=== PATIENT | male | born 2000 | race African-American/Black ===

== ENCOUNTER 2024-03-15 12:14 | Inpatient (IN) | payer OTHER, MEDICAID, SELFPAY ==
--- NOTE | 2024-03-15 12:25 | XR_ITS ---
Examination: CT brain head without contrast. 2-D sagittal coronal reconstructions Date and time of exam:March 15, 2024 at 1235 hours INDICATIONS: Seizures today, patient fell with injury to the head CTDI: vol (mGy):47.7 DLP: (mGycm):936 Technique: Multiple CT axial sections of the brain have been obtained, 5 mm slice thickness. Contrast has not been administered. 2-D sagittal, coronal reconstructions have been obtained Low dose protocols were performed. One or more of the following dose reduction techniques were used; automated exposure control, adjustment of the mA and/or KV according to patient size, use of iterative reconstruction technique. Findings: No significant ventricular enlargement. 5 mm round foreign body in the posterior scalp axial image 24 Intra-axial or extra-axial hemorrhage density is not seen. No mass effect or midline shift Basal cisterns are not remarkable. Fourth ventricle is midline. Cranial vault intact. Impression: Negative for acute hemorrhage, mass effect or midline shift Advise clinical correlation follow-up accordingly
--- NOTE | 2024-03-15 12:26 | EDNOTE_ITS ---
<Statement entered by Lenore Jose MD - 03/15/24 16:17> As co-signing physician, I was present and available for consult prn. I concur with the plan and care as documented by the midlevel provider. ED Seizures RME/HPI General Chief Complaint: Seizure Stated Complaint: SEIZURES Time Seen by Provider: 03/15/24 12:21 Arrival date/time: 03/15/24 12:14 RME / HPI RME / HPI Narrative: 24-year-old male patient with no significant past medical history, occasional beer drinker, was brought in by EMS for evaluation regarding witnessed tonic- clonic seizure at least twice few minutes prior to ER visit. Lasting for several minutes. When the EMS arrived patient was noted to be having postictal confusion. On my initial evaluation, patient was noted to be alert and oriented x 4 and denies any complaints. Patient denies any history of seizure in the past. Related Data Previous Rx's ?Medication ?Instructions ?Recorded ibuprofen 600 mg tablet 600 mg PO Q8HR PRN PAIN #30 tabs 08/10/15 Allergies Allergy/AdvReac Type Severity Reaction Status Date / Time NKA* Allergy Uncoded 06/18/13 20:20 Review of Systems Review of Systems Narrative Review of Systems: Review of system reviewed and within normal limits except mentioned in HPI ED Exam Narrative Physical exam: VITAL SIGNS: Reviewed. GENERAL APPEARANCE: Alert and interactive, follows commands, no acute distress, HEAD AND FACE: Non-traumatic. ENT: PERRL, pink conjunctivitis, eyelid no trauma, Mucous membrane moist. NECK: Supple, nontender, no nuchal rigidity. CHEST: No tenderness, no crepitus, no paradoxical movement, no retractions. LUNGS: Clear, well ventilated, symmetric, no rales, no wheezing, no ronchi, no stridor, good breath sounds bilaterally. HEART: Regular rate, regular rhythm, no murmur, no gallops. ABDOMEN: Soft, positive bowel sounds, nondistended, no guarding, nontender, no rebound, no masses, RECTAL: Deferred. GENITAL: Deferred. NEUROLOGICAL: Gross motor function intact sensory function intact, Appropriate for age. MUSCULOSKELETAL: low back nontender, full range of motion. EXTREMITIES: Nontender, full range of motion. SKIN: Color pink, dry, no rash, no lacerations, no abrasions, no contusions. LYMPHATICS: Deferred. Course Quality Measures none Orders Category Date Time Status COVID-19 Screening Questionnaire NOW Care 03/15/24 14:30 Active Decision to Admit X1 Care 03/15/24 14:30 Active Consult to Neurology / Tele-Neurology Stat Cons 03/15/24 14:[address] head/brain wo con Stat Exams 03/15/24 12:25 Completed XR chest 1V Stat Exams 03/15/24 14:33 Ordered CBC Stat Lab 03/15/24 12:45 Completed Comprehensive Metabolic Panel Stat Lab 03/15/24 12:45 Completed Drug Screen,Urine Stat Lab 03/15/24 13:07 Completed Lactate (Lactic Acid) Stat Lab 03/15/24 12:45 Results Prothrombin Time with INR Stat Lab 03/15/24 12:45 Completed UA, C/S IF [Urinalysis, C/S if Indicated] Stat Lab 03/15/24 13:07 Completed LORazepam [Ativan Inj] Med 03/15/24 14:02 Discontinued 2 mg .ROUTE .STK-MED ONE LORazepam [Ativan Inj] Med 03/15/24 14:07 Discontinued 2 mg IVP X1 ONE Sodium Chloride 0.9% 1000 ml [Ns] 1,000 ml Med 03/15/24 14:16 Active IV 999 mls/hr levETIRAcetam INJ [Keppra Inj] Med 03/15/24 14:09 Discontinued 1,000 mg IVP X1 ONE Vital Signs Vital signs: Vital Signs Temperature 98.2 F 03/15/24 12:32 Pulse Rate 70 03/15/24 12:32 Respiratory Rate 17 03/15/24 12:32 Blood Pressure 142/55 H 03/15/24 12:32 Pulse Oximetry (%) 99 03/15/24 12:32 Oxygen Delivery Method Room Air 03/15/24 12:32 Seizure MDM Narrative MDM Narrative:: 24-year-old male patient with no significant past medical history, occasional beer drinker, was brought in by EMS for evaluation regarding witnessed tonic- clonic seizure at least twice few minutes prior to ER visit. Lasting for several minutes. When the EMS arrived patient was noted to be having postictal confusion. On my initial evaluation, patient was noted to be alert and oriented x 4 and denies any complaints. Patient denies any history of seizure in the past. While in the emergency room, patient developed witnessed tonic-clonic seizure that lasted for several minutes. Patient was noted to be having postictal confusion after the seizure. Patient received Ativan IV, Keppra IV. Patient's workup today including CT scan of the head all came back unremarkable except for positive cocaine and marijuana. Plan of care discussed with the family and the need to admit the patient for further management. Spoke with Dr Patel, neurologist, and told me to admit the patient under hospitalist for further management. Patient stable for Admission. Patient data External records reviewed:: None Clinical information provided by:: patient and family Social determinants that could affect healthcare access:: none Patient has the following chronic illnesses:: Marijuana and cocaine abuse How is presenting disease/condition affected by chronic disease/condition?: exacerbated by Evaluation data The following diagnostics were reviewed and interpreted by me:: lab results and radiology exam(s) Lab and/or radiology exams considered but not ordered:: None Interpretation Summary: CT scan of the head came back unremarkable laboratory couple came back u nremarkable except positive for marijuana. And cocaine Medications / Prescriptions Medications or Prescriptions considered but not ordered:: None Medication administrations:: Medication Administration History Sodium Chloride (Ns) 1,000 mls @ 999 mls/hr IV .Q1H1M ONE Stop: 03/15/24 15:16 Last Admin: 03/15/24 14:23 Dose: 999 mls/hr Documented By: Discontinued Medications Levetiracetam (Levetiracetam Inj 100 Mg/Ml Vial 5ml) 1,000 mg IVP X1 ONE Stop: 03/15/24 14:10 Last Admin: 03/15/24 14:10 Dose: 1,000 mg Documented By: Lorazepam (Lorazepam 2 Mg/Ml Vial) 2 mg IVP X1 ONE Stop: 03/15/24 14:08 Last Admin: 03/15/24 14:07 Dose: 2 mg Documented By: Lorazepam (Lorazepam 2 Mg/Ml Vial) Confirm Administered Dose 2 mg .ROUTE .STK- MED ONE Stop: 03/15/24 14:03 Last Admin: 03/15/24 14:14 Dose: Not Given Documented By: Non-Admin Reason: Duplicate Medication on eMAR Lorazepam IV , Keppra IV, IV fluid hydration Consultations Consultation(s) initiated? (list below): Yes Consultation #1 (Physician, Specialty, Details): Dr Patel, neurologist, thank you Dr. Diagnosis Seizure Differential Diagnosis: intractable seizure disorder, new onset seizure, epileptic seizure and status epilepticus Most likely diagnosis given after review of the tests above:: New onset seizure, recurrent seizure Admission Indicated Admission indicated?: indicated Explain why admission is indicated or not indicated:: Further management Admission Request Was there a request for admission?: Yes Admission Attestation Admission request attestation: Discussed case with [Dr Garland] from Hospitalist service regarding admission. Discussed patients ED course, exam findings, labs, and radiology results. The Hospitalist [agrees] to accept the patient for admission. Disposition Plan Disposition Plan: Admit Discharge Plan Plan Patient Disposition: Admit Acute Care w/in Hospital Disposition Comment: stable Prescriptions/Referrals Prescriptions/Med Rec: No Action ibuprofen 600 MG tablet 600 mg PO Q8HR PRN (Reason: PAIN) Qty: 30 0RF Referrals: Maximo Perry PA-C [Primary Care Provider] - In 1 week Problem List Clinical Impression: New onset seizure Patient/Caregiver Discharge Instructions Print Language: Singaporean Stand Alone Forms: [employer] Award Info., Patient Portal Info Letter
[2024-03-15 12:32] VITALS: BP 142/55; PULSE 70; RESP 17; TEMP 36.8; O2SAT 99; BMI 25.1
[2024-03-15 12:50] LABS: Basophils # (Auto) 0.1 Thou/mm3 (0.0-0.2); Basophils % (Auto) 1 % (0-2.5); Eosinophils # (Auto) 0.2 Thou/mm3 (0.0-0.5); Eosinophils % (Auto) 2 % (0-10); Hematocrit 39.7 % (41.0-53.0); Hemoglobin 13.4 g/dL (13.5-16.0); Immature Granulocytes % (Auto) 0 % (0-0); Immature Granulocytes Auto 0.03 Thou/mm3 (0.00-0.00); Lymphocytes # (Auto) 1.6 Thou/mm3 (1.0-4.8); Lymphocytes % (Auto) 17 % (10-50); Mean Corpuscular HGB Conc 33.8 g/dl (31.0-37.0); Mean Corpuscular Hemoglobin 27.3 pg (25.0-35.0); Mean Corpuscular Volume 81 fL (80-100); Monocytes # (Auto) 0.6 Thou/mm3 (0.0-0.8); Monocytes % (Auto) 7 % (0-12); Neutrophils # (Auto) 6.8 Thou/mm3 (1.8-7.7); Neutrophils % (Auto) 73 % (37-80); Nucleated Red Blood Cell % 0 /100 WBC (0); Platelet Count 248 Thou/mm3 (140-440); RDW Standard Deviation 41.1 fL (35.1-43.9); White Blood Count 9.3 Thou/mm3 (3.8-10.6)
[2024-03-15 12:51] LABS: Lactate (Lactic Acid) 2.6 mMol/L (0.4-2.0)
[2024-03-15 13:09] LABS: INR 1.1 (0.9-1.3); Prothrombin Time 11.8 Seconds (9.0-12.2)
[2024-03-15 13:14] LABS: Collection Type, Urine Clean Catch; Squamous Epithelial Cell,Urine 0 /hpf (0-5)
[2024-03-15 13:18] LABS: Bilirubin,Urine Negative (Negative); Blood,Urine Negative (Negative); Clarity,Urine Clear (Clear/Hazy); Color,Urine Lt-Yellow (Lt Yel-Yel); Culture Indicated,Urine Not Indicated; Glucose, Urine Negative (Negative); Ketones,Urine 1+ (Negative); Leukocyte Esterase,Urine Negative (Negative); Nitrite,Urine Negative (Negative); PH,Urine 5.5 (5.0-7.0); Protein,Urine 1+ (Neg - Trace); RBC,Urine 2 /hpf (0-3); Specific Gravity,Urine 1.025 (1.001-1.035); Urobilinogen,Urine Negative mg/dL (0.0-1.0); WBC,Urine 1 /hpf (0-5)
[2024-03-15 13:22] LABS: Alanine Aminotransferase 20 U/L (10-49); Albumin/Globulin Ratio 1.9 (1.2-2.2); Alkaline Phosphatase 60 U/L (46-116); Anion Gap 9 (7-16); Aspartate Amino Transferase 33 U/L (0-34); BUN/Creatinine Ratio 14 Ratio (12-20); Bilirubin,Total 0.3 mg/dL (0.3-1.2); Blood Urea Nitrogen 14 mg/dL (9-23); Calcium 9.3 mg/dL (8.3-10.6); Calcium (Corrected) 9.3 mg/dL (8.5-10.1); Carbon Dioxide 22.7 mMol/L (20.0-31.0); Chloride 106 mMol/L (98-107); Estimated Creatinine Clearance 114.9 mL/min (>60); Globulin 2.6 gm/dL (2.3-3.5); Glucose 75 mg/dL (74-106); Osmolality,Calculated 275 (275-295); Potassium 4.2 mMol/L (3.4-5.1); Sodium 138 mMol/L (136-145); Total Protein 7.6 gm/dL (5.7-8.2); eGFR > 60 See Note
[2024-03-15 13:30] LABS: Amphetamine/Methamp Scrn,U Negative (Negative); Barbiturate Screen,Urine Negative (Negative); Benzodiazepines Screen,Urine Negative (Negative); Benzoylecgonine Screen, Ur Positive (Negative); Fentanyl Screen,Urine Negative (Negative); Opiate Screen,Urine Negative (Negative); THC Screen,Urine Positive (Negative)
[2024-03-15 14:07] VITALS: BP 180/72; PULSE 110; RESP 18; O2SAT 95
[2024-03-15] MEDS: LORazepam 2 MG/ML VIAL IVP (14:07)
--- NOTE | 2024-03-15 14:07 | PC.NURSE ---
RN AT BEDSIDE; PT ACTIVELY SEIZING EXHIBITING JERKING MOTIONS WITH ALL EXTREMITIES. PT'S EYES ROLLED BACK AND NOT RESPONDING TO VERBAL CUES. PT TURNED TO SIDE AND SUCTIONED APPROPRIATELY. Keily KELLEY AIRCRAFT PAINTER APPRENTICE AT BEDSIDE; VERBAL ORDERS WITH READBACK RECEIVED AT THIS TIME.
[2024-03-15] MEDS: levETIRAcetam INJ 100 MG/ML VIAL 5ML 1000 MG IVP (14:10)
--- NOTE | 2024-03-15 14:10 | PC.NURSE ---
PT PLACED ON OXY MASK @2L FOR SUPPORT AT THIS TIME
[2024-03-15 14:23] VITALS: BP 132/91; PULSE 71; RESP 18; TEMP 36.6; O2SAT 99
[2024-03-15] MEDS: SODIUM CHLORIDE 0.9% 1000 ML 1,000 ML 999 ML IV (14:23)
--- NOTE | 2024-03-15 14:45 | PC.NURSE ---
DR. Keily GARCIA AT BEDSIDE ASSESSING AND TALKING TO PT.
--- NOTE | 2024-03-15 15:22 | XR_ITS ---
Examination: AP chest single view Technique one AP portable upright chest single view Exam date and time: March 15, 2024 1529 hours INDICATIONS: Onset shortness of breath and choking today. FINDINGS: Normal heart size No aspiration pneumonia No pulmonary edema The osseous structures are intact IMPRESSION: No aspiration pneumonia
--- NOTE | 2024-03-15 15:35 | ESHP_ITS ---
Documentation for date of: 03/15/24 HPI History of Present Illness Chief complaint: new onset seizures History of present illness: 24-year-old male with no relevant past medical history was admitted to hospital on 03/15/2024 for to come to the ED brought in by EMS due to witnessed tonic- clonic seizures at least twice. During assessment patient was accompanied by his mother whom he stated could be present to discuss all medical information. Patient stated that he went to have lunch today when all of a sudden he passed out and does not remember what happened during that time and when he woke up he was confused. He stated that his friend drove him back to work and he had laid him on his side. Patient stated that he drinks around 12 cans of beers every other day depending on the day and that his last drink was Wednesday. He denies having any alcohol withdrawal symptoms like tremors, sweats, or anxiety. He also mentioned that he does marijuana, but he denied initially any other drugs. When told that his U tox was positive for cocaine he admitted to using cocaine around 2 days ago, but had not used anything else. Per patient he stated that he has never had any seizures in the past and when asked about any febrile seizures in his infancy his mother stated that he did not have this. During my assessment patient had a CIWA score around 3. Patient was upset that he would have to stay in the hospital, but agreed to stay in the hospital for further workup. ED course: Initially patient came in hypertensive and afebrile. Initial labs were relevant for mild anemia (Hgb 13.4), lactic acidosis (2.6), and U-Tox was positive for cocaine and marijuana. Alcohol levels were less than 10. Imaging included chest x-ray which was unremarkable and head CT was unremarkable. ED physicians gave loading dose of Keppra and 2 mg of Ativan. PMH: As above Social Hx: Patient admits to smoking marijuana, admits to using cocaine and marijuana, admits to drinking around 12 beers every other day. Surgical Hx: None Meds: None Review of Systems Review of Systems Narrative Review of Systems: Constitutional: Denies sweats, Denies weight loss/gain, Denies fever, Denies chills. HEENT: Denies hearing loss, Denies ear pain, Denies postnasal drip, Denies double vision, Denies blurry vision. Respiratory: Denies shortness of breath, Denies cough, Denies wheezing. Cardiovascular: Denies chest pain, Denies palpitations, Denies sudden loss of consciousness. GI: Denies blood in stool, Denies constipation, Denies abdominal pain, Denies difficulty swallowing, Denies nausea or vomit. : Denies urinary incontinence, Denies pain while urinating, Denies increased urinary frequency. MSK: Denies joint pain, Denies joint swelling, Denies numbness. Skin: Denies rash, Denies itching, Denies easy bruising. Neuro: Denies headaches, Denies dizziness, Admits seizures. Past Medical History Past Medical History Comments PMH COMMENT: PMH: As above Social Hx: Patient admits to smoking marijuana, admits to using cocaine and marijuana, admits to drinking around 12 beers every other day. Surgical Hx: None Meds: None Exam Vital Signs Temp Pulse Resp BP Pulse Ox O2 Del Method O2 Flow Rate 97.9 F 71 18 132/91 H 99 Oxy Mask 2 03/15/24 14:23 03/15/24 14:23 03/15/24 14:23 03/15/24 14:23 03/15/24 14:23 03/15/24 14:23 03/15/24 14:23 Narrative Exam General: A/O x3, no acute distress, anxious appearing Eyes: PERRL, EOMI. Anicteric, vision grossly intact. Ears: No ear pain, no ear discharge, Hearing grossly intact. Nose: No nasal discharge. Mouth/Throat: Moist mucous membranes, no redness, no lesions. Neck: Neck supple, non-tender, no cervical lymphadenopathy. Lungs: Clear PRESTON to auscultation and percussion, No accessory muscle use. Cardio: Normal S1/S2, regular rhythm, no murmurs, no JVD. Abdomen: Soft, non-tender, no palpable masses, peristalsis present, no guarding or rebound. Extremities: Symmetrical, no significant deformities, no peripheral edema , non-tender, peripheral pulses presents. Skin: No rashes, no lesions, warm to touch. Neuro: No focal neurological deficits. motor and sensory intact Psych: Anxious Results: Labs 03/15/24 12:45 03/15/24 12:45 Labs: Short CBC 03/15/24 Range/Units 12:45 WBC 9.3 (3.8-10.6) Thou/mm3 Hgb 13.4 L (13.5-16.0) g/dL Hct 39.7 L (41.0-53.0) % Plt Count 248 (140-440) Thou/mm3 BMP 03/15/24 12:45 Sodium 138 Potassium 4.2 Chloride 106 Carbon Dioxide 22.7 BUN 14 Creatinine 1.0 Glucose 75 Calcium 9.3 Liver Function 03/15/24 Range/Units 12:45 Total Bilirubin 0.3 (0.3-1.2) mg/dL AST 33 (0-34) U/L ALT 20 (10-49) U/L Alkaline Phosphatase 60 (46-116) U/L Albumin 5.0 (3.5-5.0) gm/dL Urine 03/15/24 Range/Units 13:07 Urine Color Lt-Yellow (Lt Yel-Yel) Urine Clarity Clear (Clear/Hazy) Urine pH 5.5 (5.0-7.0) Ur Specific [place] 1.025 (1.001-1.035) Urine Protein 1+ A (Neg - Trace) Urine Glucose (UA) Negative (Negative) Quality Measures Quality Measures none Medications Home Medications and Allergies Home Medications ?Medication ?Instructions ?Recorded ?Confirmed ?Type No Known Home Medications 03/15/24 03/15/24 History Allergies Allergy/AdvReac Type Severity Reaction Status Date / Time NKA* Allergy Uncoded 06/18/13 20:20 Visit Medications Folic Acid (Folic Acid 1 Mg Tablet) 1 mg PO BID JOHN Stop: 03/20/24 20:59 Lorazepam (Lorazepam 0.5 Mg Tablet) 0.5 mg PO Q4HR PRN PRN Reason: CIWA Score 2-6 Stop: 03/20/24 15:32 Lorazepam (Lorazepam 0.5 Mg Tablet) 1 mg PO Q4HR PRN PRN Reason: CIWA SCORE 7-11 Stop: 03/20/24 15:32 Lorazepam (Lorazepam 0.5 Mg Tablet) 2 mg PO Q4HR PRN PRN Reason: CIWA SCORE 12-15 Stop: 03/20/24 15:32 Lorazepam (Lorazepam 2 Mg/Ml Vial) 1 mg IV X1 PRN PRN Reason: Breakthrough Agitation Ondansetron HCl (Ondansetron Inj 2 Mg/Ml Inj 2 Ml) 4 mg IV Q6H PRN; Protocol PRN Reason: NAUSEA OR VOMITING Stop: 04/14/24 15:17 Thiamine HCl (Thiamine 100 Mg Tablet) 100 mg PO BID JOHN Stop: 03/20/24 20:59 Discontinued Medications Acetaminophen (Acetaminophen 325 Mg Tablet) 650 mg PO Q6H PRN PRN Reason: Fever >101.5 Stop: 04/14/24 15:17 Sodium Chloride (Ns) 1,000 mls @ 999 mls/hr IV .Q1H1M ONE Stop: 03/15/24 15:16 Last Admin: 03/15/24 14:23 Dose: 999 mls/hr Levetiracetam (Levetiracetam Inj 100 Mg/Ml Vial 5ml) 1,000 mg IVP X1 ONE Stop: 03/15/24 14:10 Last Admin: 03/15/24 14:10 Dose: 1,000 mg Lorazepam (Lorazepam 2 Mg/Ml Vial) 2 mg IVP X1 ONE Stop: 03/15/24 14:08 Last Admin: 03/15/24 14:07 Dose: 2 mg Assessment & Plan Plan 24-year-old male with no relevant past medical history was admitted to hospital on 03/15/2024 for new onset seizures. #Seizure ?Patient had a witnessed episode tonic-clonic seizures today while he was at lunch. DDx: seizures likely in the setting of alcohol withdrawal versus drug-induced given use of cocaine ? Head CT was unremarkable ? ED gave loading dose of Keppra and 2 mg of Ativan Plan: ? Will wait for neurology recommendations to start Keppra. ? MRI head and brain with and without contrast ordered ?EEG ordered ? Neurology consulted, appreciate recommendations ? Will continue to monitor #Polysubstance abuse #Alcohol abuse #Alcohol withdrawal #Cocaine use #Marijuana use ? Patient states that he drinks around 12 beers every other day with last drink being on Wednesday ?Patient's U tox was positive for marijuana and cocaine ?Patient's alcohol level was less than 10 ?CIWA 3 today Plan: ? CIWA protocol ordered ?accounting advisory services manager consulted ? Will continue to monitor Disposition: Patient admitted for seizures could be due to alcohol withdrawal vs drug use Diet: NPO GI prophylaxis: not indicated DVT prophylaxis: SCDs Code:Full Case disclosed with Attending Dr. Marvin and My senior Dr. Garland PGY2Jeremie Barrera PGY1 Senior Resident Attestation: The patient is a 24-year-old male with significant past medical history marijuana and cocaine abuse disorder was brought in by ambulance to ED with chief complaint of witnessed generalized tonic-clonic seizure for 2 episodes. The patient reported that he had used cocaine 2 days back and has been using marijuana. His procedure was likely in the setting of cocaine abuse, less likely alcohol withdrawal. Neurologist Dr. Patel was consulted who recommended Keppra 1 g and IV Ativan 2 mg. Vitals were stable, physical exam was significant for patient being somnolent. He was started on CIWA protocol. We ordered EEG, MRI head and brain with and without contrast along with seizure precautions. Pending further recommendations from neurologist Dr. Patel. I discussed with and supervised the investigator internal affairs physician involved in the care of this patient. I personally saw and examined the patient and discussed the assessment and plan with the entire medicine team, including my attending. I agree with the assessment and plan as documented above. Aung Garland MD PGY2 Internal Medicine
[2024-03-15 15:48] LABS: Reflex Lactate? Y
[2024-03-15 16:00] VITALS: PULSE 73; RESP 19; O2SAT 99
[2024-03-15 16:06] LABS: Lactic Acid, 3 HR 1.3 mMol/L (0.4-2.0)
[2024-03-15 16:21] VITALS: BP 118/49; PULSE 74; RESP 19; TEMP 36.9; O2SAT 96
[2024-03-15 16:30] LABS: Alcohol, Blood Medical < 10.0 mg/dL (0-10.0)
--- NOTE | 2024-03-15 16:33 | XR_ITS ---
Examination: MRI of brain without intravenous contrast. MRI brain with intravenous contrast. Date and time of exam:March 15, 2024 1825 hours INDICATIONS: Seizures lasting several minutes today Technique: Multiple axial and sagittal images of the brain to been obtained. Siemens high-resolution 1.52 Katerina short bore scanner utilized. Sagittal sections, T1 weighted images, TR 500, TE 14, are performed. Axial sections proton-density and T2-weighted images have been obtained. Inversion recovery axial images, TR 9260, TE 111, TR 2500. Diffusion weighted images, axial sections, TR 4800, TE 128, B value 1000. Axial sections, ADC map, TR 4800, TE 128. Axial and coronal images were also obtained post 15 cc gadolinium administered intravenously. Findings:: Enlargement of the sella turcica is not present. The optic chiasm and infundibular stalk are not remarkable. There is no localized enlargement of the medulla or felisha. Fourth ventricle and cerebellar tonsils appear normal in position. No subacute area of hemorrhage density is seen. Fourth ventricle is midline. Mass in the cerebellopontine angle region is not evident. 7th and 8th nerve complexes exhibit symmetry Globes are symmetrical Orbital musculature including medial lateral rectus muscles do not exhibit abnormality Increased white matter signal is not seen Effacement of the cortical sulcal markings is not identified. Mass effect upon the ventricular system is not identified. Diffusion-weighted images demonstrate no focus of restricted diffusion Contrast images demonstrate no abnormal enhancement Impression: The study is severely limited secondary to artifacts from a BB density in the posterior scalp No gross hemorrhage mass effect or midline shift No acute infarct No MR findings diagnostic for demyelinating disease
[2024-03-15 20:00] VITALS: BP 121/80; PULSE 83; PULSE 93; RESP 19; TEMP 36.8; O2SAT 100
[2024-03-15] MEDS: FOLIC ACID 1 MG TABLET PO (20:22)
[2024-03-15] MEDS: THIAMINE 100 MG TABLET PO (20:22)
--- NOTE | 2024-03-15 20:41 | PC.NURSE ---
No available avasure, pt was place near nurses station.
--- NOTE | 2024-03-15 23:50 | VVCONSULT_ITS ---
Telemedicine visit statement This visit was conducted with the use of interactive audio and video telecommunications system that permits real time communication between the patient and the provider. Patient's verbal consent for virtual visit was obtained on 03/15/24 at 2351. Meds Home Medications and Allergies Home Medications ?Medication ?Instructions ?Recorded ?Confirmed ?Type No Known Home Medications 03/15/24 03/15/24 History Allergies Allergy/AdvReac Type Severity Reaction Status Date / Time No Known Allergies Allergy Unverified 03/16/24 08:14 Virtual exam Vital Signs Temp Pulse Resp BP Pulse Ox O2 Del Method O2 Flow Rate 98.3 F 83 19 121/80 100 Room Air 2 03/15/24 20:00 03/15/24 20:00 03/15/24 20:00 03/15/24 20:00 03/15/24 20:00 03/15/24 20:00 03/15/24 16:00 Results Labs 03/16/24 04:55 03/16/24 04:55 Labs: Short CBC 03/15/24 Range/Units 12:45 WBC 9.3 (3.8-10.6) Thou/mm3 Hgb 13.4 L (13.5-16.0) g/dL Hct 39.7 L (41.0-53.0) % Plt Count 248 (140-440) Thou/mm3 BMP 03/15/24 12:45 Sodium 138 Potassium 4.2 Chloride 106 Carbon Dioxide 22.7 BUN 14 Creatinine 1.0 Glucose 75 Calcium 9.3 Liver Function 03/15/24 Range/Units 12:45 Total Bilirubin 0.3 (0.3-1.2) mg/dL AST 33 (0-34) U/L ALT 20 (10-49) U/L Alkaline Phosphatase 60 (46-116) U/L Albumin 5.0 (3.5-5.0) gm/dL Urine 03/15/24 Range/Units 13:07 Urine Color Lt-Yellow (Lt Yel-Yel) Urine Clarity Clear (Clear/Hazy) Urine pH 5.5 (5.0-7.0) Ur Specific [place] 1.025 (1.001-1.035) Urine Protein 1+ A (Neg - Trace) Urine Glucose (UA) Negative (Negative) Assessment & Plan Problem List (1) New onset seizure: Status: Acute Assessment and plan: DD: seizures/Alcohol withdarawal/drug induced vasculitis fu with brain MRI and EEG continue with Keppra 750 mg bid.
[2024-03-16] VITALS (11 sets, daily range): BP systolic 97–136; BP diastolic 48–90; PULSE 58–98; RESP 15–100; TEMP 36.5–36.8; O2SAT 97–100; BMI 25.1
[2024-03-16 06:10] LABS: Basophils # (Auto) 0.1 Thou/mm3 (0.0-0.2); Basophils % (Auto) 1 % (0-2.5); Eosinophils # (Auto) 0.3 Thou/mm3 (0.0-0.5); Eosinophils % (Auto) 2 % (0-10); Hematocrit 37.9 % (41.0-53.0); Hemoglobin 12.5 g/dL (13.5-16.0); Immature Granulocytes % (Auto) 0 % (0-0); Immature Granulocytes Auto 0.05 Thou/mm3 (0.00-0.00); Lymphocytes # (Auto) 2.1 Thou/mm3 (1.0-4.8); Lymphocytes % (Auto) 14 % (10-50); Mean Corpuscular Hemoglobin 27.7 pg (25.0-35.0); Mean Corpuscular Volume 84 fL (80-100); Monocytes % (Auto) 7 % (0-12); Neutrophils # (Auto) 11.2 Thou/mm3 (1.8-7.7); Neutrophils % (Auto) 76 % (37-80); Nucleated Red Blood Cell % 0 /100 WBC (0); Platelet Count 223 Thou/mm3 (140-440); RDW Standard Deviation 42.8 fL (35.1-43.9); Red Blood Count 4.51 Miln/mm3 (4.50-5.90); White Blood Count 14.7 Thou/mm3 (3.8-10.6)
[2024-03-16 06:45] LABS: Alanine Aminotransferase 18 U/L (10-49); Albumin, Serum 4.4 gm/dL (3.5-5.0); Albumin/Globulin Ratio 1.8 (1.2-2.2); Alkaline Phosphatase 52 U/L (46-116); Anion Gap 8 (7-16); Aspartate Amino Transferase 27 U/L (0-34); BUN/Creatinine Ratio 10 Ratio (12-20); Bilirubin,Total 1.2 mg/dL (0.3-1.2); Blood Urea Nitrogen 9 mg/dL (9-23); Calcium 9.2 mg/dL (8.3-10.6); Calcium (Corrected) 9.2 mg/dL (8.5-10.1); Cardiac Risk Estimate 2.4 RATIO (4.0-6.7); Chloride 106 mMol/L (98-107); Cholesterol 127 mg/dL (132-200); Creatinine (Component) 0.9 mg/dL (0.6-1.3); Estimated Creatinine Clearance 127.7 mL/min (>60); Globulin 2.4 gm/dL (2.3-3.5); Glucose 83 mg/dL (74-106); HDL Cholesterol 54 mg/dL (40-60); LDL Cholesterol,Calculated 51 mg/dL (0-130); Osmolality,Calculated 275 (275-295); Phosphorous 3.6 mg/dL (2.4-5.1); Potassium 3.8 mMol/L (3.4-5.1); Sodium 139 mMol/L (136-145); Thyroid Stimulating Hormone 0.37 uIU/mL (0.55-4.78); Total Protein 6.8 gm/dL (5.7-8.2); Triglycerides 110 mg/dL (30-150); eGFR > 60 See Note
[2024-03-16 08:16] LABS: Free T4 (Free Thyroxine) 1.34 ng/dL (0.89-1.76)
[2024-03-16] MEDS: FOLIC ACID 1 MG TABLET PO ×2 (08:19→20:57)
[2024-03-16] MEDS: THIAMINE 100 MG TABLET PO ×2 (08:19→20:57)
[2024-03-16] MEDS: levETIRAcetam 250 MG TABLET 750 MG PO ×2 (08:22→20:57)
--- NOTE | 2024-03-16 11:14 | ESPR_ITS ---
Documentation for date of: 03/16/24 Subjective Subjective Interval history: Patient seen at bedside this morning. No overnight events. Patient wants to leave AMA this morning, but after speaking with him and discussing the risk if he left AMA he agreed to stay for further workup. Patient's MRI was unremarkable. EEG was taken and is still pending official read and further recommendations from neurologist. Start patient on Keppra 750 twice daily. No other complaints at this time. Exam Vital Signs Temp Pulse Resp BP Pulse Ox O2 Del Method O2 Flow Rate 97.7 F 67 18 109/70 97 Room Air 2 03/16/24 08:00 03/16/24 08:00 03/16/24 08:00 03/16/24 08:00 03/16/24 08:00 03/16/24 08:00 03/15/24 16:00 Narrative Exam General: A/O x3, no acute distress Eyes: PERRL, EOMI. Anicteric, vision grossly intact. Ears: No ear pain, no ear discharge, Hearing grossly intact. Nose: No nasal discharge. Mouth/Throat: Moist mucous membranes, no redness, no lesions. Neck: Neck supple, non-tender, no cervical lymphadenopathy. Lungs: Clear [place]ON to auscultation and percussion, No accessory muscle use. Cardio: Normal S1/S2, regular rhythm, no murmurs, no JVD. Abdomen: Soft, non-tender, no palpable masses, peristalsis present, no guarding or rebound. Extremities: Symmetrical, no significant deformities, no peripheral edema , non-tender, peripheral pulses presents. Skin: No rashes, no lesions, warm to touch. Neuro: No focal neurological deficits. motor and sensory intact Objective Labs 03/16/24 04:55 03/16/24 04:55 Labs: Laboratory Results - last 24 hr 03/15/24 03/15/24 03/15/24 12:45 13:07 16:02 WBC 9.3 RBC 4.90 Hgb 13.4 L Hct 39.7 L MCV 81 MCH 27.3 MCHC 33.8 RDW Std Deviation 41.1 Plt Count 248 Neut % (Auto) 73 Lymph % (Auto) 17 [place] % (Auto) 7 Eos % (Auto) 2 Baso % (Auto) 1 Neut # (Auto) 6.8 Lymph # (Auto) 1.6 [place] # (Auto) 0.6 Eos # (Auto) 0.2 Baso # (Auto) 0.1 Immature Gran # (Auto) 0.03 H Absolute Nucleated RBC 0.00 Immature Gran % 0 Nucleated RBC % 0 PT 11.8 INR 1.1 Sodium 138 Potassium 4.2 Chloride 106 Carbon Dioxide 22.7 Anion Gap 9 BUN 14 Creatinine 1.0 Estim Creat Clear Calc 114.9 eGFR > 60 BUN/Creatinine Ratio 14 Glucose 75 Calculated Osmolality 275 Lactic Acid 2.6 H 1.3 Calcium 9.3 Corrected Calcium 9.3 Phosphorus Magnesium Total Bilirubin 0.3 AST 33 ALT 20 Alkaline Phosphatase 60 Total Protein 7.6 Albumin 5.0 Globulin 2.6 Albumin/Globulin Ratio 1.9 Triglycerides Cholesterol LDL Cholesterol, Calc HDL Cholesterol Cholesterol/HDL Ratio TSH Free T4 Ur Collection Type Clean Catch Urine Color Lt-Yellow Urine Clarity Clear Urine pH 5.5 Ur Specific [place] 1.025 Urine Protein 1+ A Urine Glucose (UA) Negative Urine Ketones 1+ A Urine Blood Negative Urine Nitrite Negative Urine Bilirubin Negative Urine Urobilinogen (Auto) Negative Ur Leukocyte Esterase Negative Urine RBC 2 Urine WBC 1 Ur Squamous Epith Cells 0 Urine Bacteria None Ur Culture Indicated? Not Indicated Urine Opiates Screen Negative Urine Fentanyl Screen Negative Ur Barbiturates Screen Negative U Amphetamin/Meth Scrn Negative U Benzodiazepines Scrn Negative U Cocaine Metab Screen Positive A U Marijuana (THC) Screen Positive A Ethyl Alcohol < 10.0 03/16/24 04:55 WBC 14.7 H D RBC 4.51 Hgb 12.5 L Hct 37.9 L MCV 84 MCH 27.7 MCHC 33.0 RDW Std Deviation 42.8 Plt Count 223 Neut % (Auto) 76 Lymph % (Auto) 14 [place] % (Auto) 7 Eos % (Auto) 2 Baso % (Auto) 1 Neut # (Auto) 11.2 H Lymph # (Auto) 2.1 [place] # (Auto) 1.0 H Eos # (Auto) 0.3 Baso # (Auto) 0.1 Immature Gran # (Auto) 0.05 H Absolute Nucleated RBC 0.00 Immature Gran % 0 Nucleated RBC % 0 PT INR Sodium 139 Potassium 3.8 Chloride 106 Carbon Dioxide 25.0 Anion Gap 8 BUN 9 Creatinine 0.9 Estim Creat Clear Calc 127.7 eGFR > 60 BUN/Creatinine Ratio 10 L Glucose 83 Calculated Osmolality 275 Lactic Acid Calcium 9.2 Corrected Calcium 9.2 Phosphorus 3.6 Magnesium 2.0 Total Bilirubin 1.2 D AST 27 ALT 18 Alkaline Phosphatase 52 Total Protein 6.8 Albumin 4.4 D Globulin 2.4 Albumin/Globulin Ratio 1.8 Triglycerides 110 Cholesterol 127 L LDL Cholesterol, Calc 51 HDL Cholesterol 54 Cholesterol/HDL Ratio 2.4 L TSH 0.37 L Free T4 1.34 Ur Collection Type Urine Color Urine Clarity Urine pH Ur Specific [place] Urine Protein Urine Glucose (UA) Urine Ketones Urine Blood Urine Nitrite Urine Bilirubin Urine Urobilinogen (Auto) Ur Leukocyte Esterase Urine RBC Urine WBC Ur Squamous Epith Cells Urine Bacteria Ur Culture Indicated? Urine Opiates Screen Urine Fentanyl Screen Ur Barbiturates Screen U Amphetamin/Meth Scrn U Benzodiazepines Scrn U Cocaine Metab Screen U Marijuana (THC) Screen Ethyl Alcohol Quality Measures Quality Measures none Assessment & Plan Assessment Current Active Medications: Generic Name Dose Route Start Last Admin Trade Name Freq PRN Reason Stop Dose Admin Acetaminophen 650 mg 03/15/24 15:35 Acetaminophen 325 Mg Tablet PO 04/14/24 15:17 Q6H PRN pain(1-3) and Fever >100.4 Hydrocodone Bitart/Acetaminophen 1 tab 03/15/24 15:33 Hydrocodone/Apap 5/325 Tablet PO 03/20/24 15:32 Q4HR PRN PAIN SCALE 4-10(Mod-Sev Folic Acid 1 mg 03/15/24 21:00 03/16/24 08:19 Folic Acid 1 Mg Tablet PO 03/20/24 20:59 1 mg BID JOHN Administration Levetiracetam 750 mg 03/16/24 09:00 03/16/24 08:22 Levetiracetam 250 Mg Tablet PO 04/15/24 08:59 750 mg BID JOHN Administration Lorazepam 0.5 mg 03/15/24 15:33 Lorazepam 0.5 Mg Tablet PO 03/20/24 15:32 Q4HR PRN CIWA Score 2-6 Lorazepam 1 mg 03/15/24 15:33 Lorazepam 0.5 Mg Tablet PO 03/20/24 15:32 Q4HR PRN CIWA SCORE 7-11 Lorazepam 2 mg 03/15/24 15:33 Lorazepam 0.5 Mg Tablet PO 03/20/24 15:32 Q4HR PRN CIWA SCORE 12-15 Lorazepam 1 mg 03/15/24 15:33 Lorazepam 2 Mg/Ml Vial IV X1 PRN Breakthrough Agitation Ondansetron HCl 4 mg 03/15/24 15:18 Ondansetron Inj 2 Mg/Ml Inj 2 Ml IV 04/14/24 15:17 Q6H PRN NAUSEA OR VOMITING Protocol Sennosides 1 tab 03/15/24 15:33 Senna Tablet PO 04/14/24 15:32 QDAY PRN constipation Protocol Thiamine HCl 100 mg 03/15/24 21:00 03/16/24 08:19 Thiamine 100 Mg Tablet PO 03/20/24 20:59 100 mg BID JOHN Administration Plan 24-year-old male with no relevant past medical history was admitted to hospital on 03/15/2024 for new onset seizures. #Seizure ?Patient had a witnessed episode tonic-clonic seizures today while he was at lunch. DDx: seizures likely in the setting of alcohol withdrawal versus drug-induced given use of cocaine ? Head CT was unremarkable ? ED gave loading dose of Keppra and 2 mg of Ativan ? MRI head and brain with and without contrast unremarkable Plan: ? Started Keppra 750 BID ?EEG pending ? Neurology consulted, appreciate recommendations ? Will continue to monitor #Polysubstance abuse #Alcohol abuse #Alcohol withdrawal #Cocaine use #Marijuana use ? Patient states that he drinks around 12 beers every other day with last drink being on Wednesday ?Patient's U tox was positive for marijuana and cocaine ?Patient's alcohol level was less than 10 ?CIWA 0 today Plan: ? CIWA protocol ordered ?director career services consulted ? Will continue to monitor Disposition: Patient admitted for seizures pending EEG. Diet: regular diet GI prophylaxis: not indicated DVT prophylaxis: SCDs Code:Full Case disclosed with Attending Dr. Marvin and My senior Dr. Garland PGY2. Terell Barrera PGY1 Senior Resident Attestation: The patient is a 24-year-old male with significant past medical history of cocaine and marijuana abuse disorder who presented to ED with generalized abnormal body movements, and was admitted for further management. This morning, the patient reported that he wanted to leave AMA as he was bored. However, we counseled him to stay for at least 1 more day. He denies any headache, nausea or vomiting, lightheadedness, chest pain or SOB, fever or chills. His vitals were stable, labs revealed mild elevation of WBC at 14.7, and physical examination was unremarkable. The patient's EGD is pending. For seizure, the patient started on Keppra 750 Mg twice daily, and is on [facility] protocol for possible alcohol withdrawal. He was counseled to stop taking any illicit drugs. Pending further recommendations from neurologist Dr. Patel. I discussed with and supervised the recording studio intern physician involved in the care of this patient. I personally saw and examined the patient and discussed the assessment and plan with the entire medicine team, including my attending. I agree with the assessment and plan as documented above. Aung Garland MD PGY2 Internal Medicine
[2024-03-16] MEDS: POTASSIUM CHLORIDE 20 mEq TABCR PO (11:25)
--- NOTE | 2024-03-16 12:02 | RESP.EEG ---
EEG COMPLETED AND READY FOR REVIEW
--- NOTE | 2024-03-16 15:59 | PC.SS ---
Patient is alert/oriented. Patient sleeping and mother at bedside. Patient admitted for seizure activity. Patient's mother states it's new. Patient is independent with ADL's. No DME. Patient is employed through [employer]. PCP: Dr. Perry. Pharmacy: [email or web address]. Patient to d/c back home. No further d/ c needs.
--- NOTE | 2024-03-16 23:53 | PD.NEUROPROG ---
Documentation for date of: 03/16/24 Subjective Subjective Interval history: Seen in [facility] today at the bedside. No seizures reported after admission. No side effects on Keppra. Exam - Neurology Vital Signs Temp Pulse Resp BP Pulse Ox O2 Del Method O2 Flow Rate 98.3 F 96 19 136/90 H 99 Room Air 2 03/16/24 20:00 03/16/24 20:00 03/16/24 20:00 03/16/24 20:00 03/16/24 20:00 03/16/24 20:00 03/16/24 20:00 Narrative Exam GENERAL APPEARANCE: Well hydrated, well-nourished in no acute distress. HEENT: Normocephalic, atraumatic, extraocular movements intact. Pupils: Equal reacting to light and accommodation NECK: Supple, no JVD or bruits. CARDIOVASULAR: Heart: S1, S2 heard, regular without S3-S4 or murmur no rubs or gallops. LUNGS/CHEST: Clear to auscultation bilaterally. No rails, rhonchi, or wheezing. Normal inspection. ABDOMEN: Soft, nontender, with normal bowel sounds. No pulsatile masses. No rebound, rigidity, or guarding. Normal inspection and palpation. EXTREMITIES: Normal inspection and palpation. No edema, clubbing or cyanosis. SKIN: Warm and dry without rashes. Normal inspection. MUSCULOSKELETAL: No cervical, thoracic, lumbar or midline bony tenderness. Normal inspection. NEURO: Alert, awake and oriented x3. Cranial nerves: II through XII grossly intact. Speech and language: Normal with no dysarthria or dysphasia. Motor system: Tone and bulk: Normal: Strength: 5 out of 5 in all 4 extremities; No pronator drift noted. Deep tendon reflexes: 2+ bilaterally symmetrical. Plantar reflex: Downgoing bilaterally. Sensory system: Intact to all modalities of sensation bilaterally. Coordination: Intact to [id number] and [id number] test bilaterally. No ataxia, no dysmetria, or dysdiadochokinesia noted. No intention tremors noted. Gait: Normal. Toe, heel, tandem walk all are normal. Romberg: Negative. No signs of meningeal irritation noted. PSYCHIATRIC: Normal mood and affect. Objective Labs 03/16/24 04:55 03/16/24 04:55 Labs: Laboratory Results - last 24 hr 03/16/24 04:55 WBC 14.7 H D RBC 4.51 Hgb 12.5 L Hct 37.9 L MCV 84 MCH 27.7 MCHC 33.0 RDW Std Deviation 42.8 Plt Count 223 Neut % (Auto) 76 Lymph % (Auto) 14 [place] % (Auto) 7 Eos % (Auto) 2 Baso % (Auto) 1 Neut # (Auto) 11.2 H Lymph # (Auto) 2.1 [place] # (Auto) 1.0 H Eos # (Auto) 0.3 Baso # (Auto) 0.1 Immature Gran # (Auto) 0.05 H Absolute Nucleated RBC 0.00 Immature Gran % 0 Nucleated RBC % 0 Sodium 139 Potassium 3.8 Chloride 106 Carbon Dioxide 25.0 Anion Gap 8 BUN 9 Creatinine 0.9 Estim Creat Clear Calc 127.7 eGFR > 60 BUN/Creatinine Ratio 10 L Glucose 83 Calculated Osmolality 275 Calcium 9.2 Corrected Calcium 9.2 Phosphorus 3.6 Magnesium 2.0 Total Bilirubin 1.2 D AST 27 ALT 18 Alkaline Phosphatase 52 Total Protein 6.8 Albumin 4.4 D Globulin 2.4 Albumin/Globulin Ratio 1.8 Triglycerides 110 Cholesterol 127 L LDL Cholesterol, Calc 51 HDL Cholesterol 54 Cholesterol/HDL Ratio 2.4 L TSH 0.37 L Free T4 1.34 Assessment & Plan Assessment and plan (1) New onset seizure: Status: Acute Assessment and plan: EEG showed normal study but he does not rule out the diagnosis seizures. Continue with the Keppra. No driving. Follow-up with me as an outpatient upon referral from his primary care physician. MRI brain: Negative study.
[2024-03-17] VITALS: BP 125/72; PULSE 87; PULSE 90; RESP 21; TEMP 36.8; O2SAT 99
[2024-03-17 04:00] VITALS: BP 128/74; PULSE 70; PULSE 78; RESP 17; TEMP 36.6; O2SAT 99
[2024-03-17 05:54] LABS: Basophils # (Auto) 0.1 Thou/mm3 (0.0-0.2); Basophils % (Auto) 1 % (0-2.5); Eosinophils # (Auto) 0.7 Thou/mm3 (0.0-0.5); Eosinophils % (Auto) 7 % (0-10); Hematocrit 36.4 % (41.0-53.0); Hemoglobin 11.8 g/dL (13.5-16.0); Immature Granulocytes % (Auto) 0 % (0-0); Immature Granulocytes Auto 0.02 Thou/mm3 (0.00-0.00); Lymphocytes # (Auto) 3.1 Thou/mm3 (1.0-4.8); Lymphocytes % (Auto) 31 % (10-50); Mean Corpuscular HGB Conc 32.4 g/dl (31.0-37.0); Mean Corpuscular Hemoglobin 27.6 pg (25.0-35.0); Mean Corpuscular Volume 85 fL (80-100); Monocytes # (Auto) 0.9 Thou/mm3 (0.0-0.8); Monocytes % (Auto) 10 % (0-12); Neutrophils # (Auto) 5.1 Thou/mm3 (1.8-7.7); Neutrophils % (Auto) 51 % (37-80); Nucleated Red Blood Cell % 0 /100 WBC (0); Platelet Count 262 Thou/mm3 (140-440); RDW Standard Deviation 43.1 fL (35.1-43.9); Red Blood Count 4.28 Miln/mm3 (4.50-5.90); White Blood Count 9.9 Thou/mm3 (3.8-10.6)
[2024-03-17 06:00] VITALS: BMI 24.9
[2024-03-17 06:43] LABS: Alanine Aminotransferase 18 U/L (10-49); Albumin, Serum 4.5 gm/dL (3.5-5.0); Alkaline Phosphatase 51 U/L (46-116); Anion Gap 7 (7-16); Aspartate Amino Transferase 21 U/L (0-34); BUN/Creatinine Ratio 11 Ratio (12-20); Bilirubin,Total 0.2 mg/dL (0.3-1.2); Blood Urea Nitrogen 10 mg/dL (9-23); Calcium 9.4 mg/dL (8.3-10.6); Calcium (Corrected) 9.4 mg/dL (8.5-10.1); Carbon Dioxide 29.7 mMol/L (20.0-31.0); Chloride 104 mMol/L (98-107); Creatinine (Component) 0.9 mg/dL (0.6-1.3); Estimated Creatinine Clearance 127.7 mL/min (>60); Globulin 2.3 gm/dL (2.3-3.5); Glucose 112 mg/dL (74-106); Magnesium 1.8 mg/dL (1.6-2.6); Osmolality,Calculated 281 (275-295); Phosphorous 4.5 mg/dL (2.4-5.1); Potassium 4.2 mMol/L (3.4-5.1); Sodium 141 mMol/L (136-145); Total Protein 6.8 gm/dL (5.7-8.2); eGFR > 60 See Note
[2024-03-17 08:00] VITALS: BP 121/95; PULSE 61; PULSE 84; RESP 16; TEMP 35.9; O2SAT 100
[2024-03-17] MEDS: THIAMINE 100 MG TABLET PO (09:04)
[2024-03-17] MEDS: FOLIC ACID 1 MG TABLET PO (09:04)
[2024-03-17] MEDS: levETIRAcetam 250 MG TABLET 750 MG PO (09:04)
--- NOTE | 2024-03-17 10:04 | ESDS_ITS ---
Planned Discharge Date 03/17/24 DS: Providers Provider Date of admission: 03/15/24 15:18 Primary care physician: Maximo Perry PA-C Admitting Provider: Guillermo Marvin MD Attending Provider on Admission: Guillermo Marvin MD Consults: 03/15/24 14:17 Consult to Neurology / Tele-Neurology Stat Comment: New onset seizure, recurrent seizure Consulting Provider: Vinny Patel Attending Provider on DC: Guillermo Marvin MD Discharging Provider: Guillermo Marvin MD DS: Diagnosis Problem List Completed Was Problem List Reviewed/Reconciled?: Yes Hospital Course Hospital Course Hospital course: 24-year-old male with no relevant past medical history was admitted to hospital on 03/15/2024 for new onset seizures. Initially patient came in to the ED brought in by EMS due to witnessed tonic-clonic seizures at least twice. Initially patient came in hypertensive and afebrile. Initial labs were relevant for mild anemia (Hgb 13.4), lactic acidosis (2.6), and U-Tox was positive for cocaine and marijuana. Alcohol levels were less than 10. Imaging included chest x-ray which was unremarkable and head CT was unremarkable. Patient was given a loading dose of Keppra in the ED as well as 2 mg of Ativan. In-house neurologist recommended to get MRI and EEG which were both unremarkable. Patient was placed on Keppra 750 mg twice daily as recommended by neurologist. Patient remained stable throughout his hospital stay. He was counseled on abstaining from any further drug use. By the time of discharge patient was stable enough to be discharged home. Discharge plan: ? Please follow-up with your primary care physician in 1 after discharge. ? Please follow-up with neurologist Dr. Patel in 2 weeks after discharge ? You have been started on Keppra 750mg twice daily - Strictly recommended not to drive - Strictly recommended to stop using any illicit drugs ? Please come back to the ER if symptoms persist or worsen Problems: #Seizure #Polysubstance abuse #Alcohol abuse #Alcohol withdrawal #Cocaine use #Marijuana use Case disclosed with Attending Dr. Marvin and My senior Dr. Garland PGY2. Terell Barrera PGY1 Senior Resident Attestation: I discussed with and supervised the sports broadcasting internship physician involved in the care of this patient. I personally saw and examined the patient and discussed the assessment and plan with the entire medicine team, including my attending. I agree with the discharge plan as documented above. Aung Garland MD PGY2 Internal Medicine Status at Discharge Overall status at discharge: patient is progressing back to baseline Time Spent with Patient Time attestation: Total time spent providing and/or coordinating discharge services:>35 min Exam Vital Signs Temp Pulse Resp BP Pulse Ox O2 Del Method O2 Flow Rate 97.8 F 61 17 128/74 99 Room Air 2 03/17/24 04:00 03/17/24 08:00 03/17/24 04:00 03/17/24 04:00 03/17/24 04:00 03/17/24 04:00 03/17/24 04:00 Narrative Exam General: A/O x3, no acute distress Eyes: PERRL, EOMI. Anicteric, vision grossly intact. Ears: No ear pain, no ear discharge, Hearing grossly intact. Nose: No nasal discharge. Mouth/Throat: Moist mucous membranes, no redness, no lesions. Neck: Neck supple, non-tender, no cervical lymphadenopathy. Lungs: Clear [place] to auscultation and percussion, No accessory muscle use. Cardio: Normal S1/S2, regular rhythm, no murmurs, no JVD. Abdomen: Soft, non-tender, no palpable masses, peristalsis present, no guarding or rebound. Extremities: Symmetrical, no significant deformities, no peripheral edema , non-tender, peripheral pulses presents. Skin: No rashes, no lesions, warm to touch. Neuro: No focal neurological deficits. motor and sensory intact Discharge Plan Plan Patient Disposition: HOME (Self Care) Disposition Comment: stable Care Plan Goals: ? Please follow-up with your primary care physician in 1 after discharge. ? Please follow-up with neurologist Dr. Patel in 2 weeks after discharge ? You have been started on Keppra 750mg twice daily - Strictly recommended not to drive - Strictly recommended to stop using any illicit drugs ? Please come back to the ER if symptoms persist or worsen Prescriptions/Referrals Prescriptions/Med Rec: New levetiracetam [Keppra] 750 mg tablet 750 mg PO BID 30 Days Qty: 60 0RF Referrals: Vinny Patel MD [Physician] - Maximo Perry PA-C [Primary Care Provider] - Patient/Caregiver Discharge Instructions Discharge Activity: activity as tolerated Other Discharge Activity Instructions:: ? Please follow-up with your primary care physician in 1 after discharge. ? Please follow-up with neurologist Dr. Patel in 2 weeks after discharge ? You have been started on Keppra 750mg twice daily - Strictly recommended not to drive - Strictly recommended to stop using any illicit drugs ? Please come back to the ER if symptoms persist or worsen Education Materials: Treating Drug Abuse and Addiction, ED Seizure New Onset Un known ... Print Language: Icelandic Stand Alone Forms: [employer] Info., Patient Portal Info Letter Discharge Order Discharge Orders: Discharge (Routine); Ordered 03/17/24 Ordered By: Aung Garland Quality Discharge Quality Measures VTE prophylaxis
== END 2024-03-17 11:24 | disposition home or self-care (01) | DRG 101 ==
LOC: SERX 14:40 → SERHOLD 15:31 → S3NX 19:39
PROVIDERS: Nurse Practitioner Family; Student in an Organized Health Care Education/Training Program; Admitting Provider Internal Medicine; Emergency Provider Emergency Medicine; PCP Physician Assistant; Visit Provider Internal Medicine
DX: R56.9 Unspecified convulsions (principal); F10.139 Alcohol abuse with withdrawal, unspecified; E87.20 Acidosis, unspecified; R55 Syncope and collapse; D64.9 Anemia, unspecified; F12.90 Cannabis use, unspecified, uncomplicated; F14.90 Cocaine use, unspecified, uncomplicated; Y90.0 Blood alcohol level of less than 20 mg/100 ml
CPT/HCPCS: 36415; 70450; 70553; 71045; 80053; 80061; 80307; 80320; 81001; 83605; 83735; 84100; 84439; 84443; 85025; 85610; 93225; 95816; A9579; J1953; J2060; J7030; A9270; G0480

== ENCOUNTER 2024-06-28 13:41 | Emergency (ER) | payer OTHER, SELFPAY ==
--- NOTE | 2024-06-28 13:44 | EDNOTE_ITS ---
ED General RME/HPI General Stated complaint: SEIZURE Time Seen by Provider: 06/28/24 13:44 Arrival date/time: 06/28/24 13:41 RME / HPI RME / HPI narrative: 24 year old male presents to the ED BIBA from home for evaluation of seizure today. Per medics, patient was with family when he began to seize. Per medics report, family described patient was completely out of it and lasting approximately 5 minutes. On their arrival patient was postictal. State en route to ED patient woke up and refusing all care. On arrival to ED patient is refusing any treatment. States this is his second seizure and is not currently on any medications. Cause of seizures is unknown. No injuries were reported. Related Data Allergies Allergy/AdvReac Type Severity Reaction Status Date / Time No Known Allergies Allergy Unverified 03/16/24 08:14 Review of Systems Review of Systems Narrative Review of Systems: Unobtainable, patient refusing to answer any questions and refusing care. ED Exam Narrative Physical exam: Patient wanted to leave AMA after arriving by ambulance. I was asked by the charge nurse to go out and see this patient in the ambulance bay outside. Patient was uncooperative sitting there reported to me that he had had 2 seizures. He was post ictal per EMS staff who picked him up at [facility]. Patient refused to have any dialogue and walked off but he was informed he is not to drive or operate equipment charge nurse was asked to fill out a CMR card. The patient is alert awake oriented appears to have full capacity to make decisions. His head and neck are unremarkable. He moves his neck without any difficulty. His chest and abdomen were visualized with his clothing and appears to have no complaint or problem He is moving his extremities he is ambulating without any difficulty with no ataxia and no weakness. Patient did not allow me to examine him further but does not appear to be under the influence. Course Quality Measures none Discharge Plan Plan Patient Disposition: Left Against Medical Advice Problem List Clinical Impression: Generalized tonic-clonic seizure Patient/Caregiver Discharge Instructions Print Language: Lithuanian MDM Patient Acuity Narrative: Patient 24-year-old who has been here before this past March had reported 2 seizures that time was found to have cocaine and marijuana in his system. He was post to be on Keppra but evidently has not taken it per his verbal communication to me with my encounter with him in the ambulance bay. Patient walked off left AMA did not sign papers. He was instructed not to operate any machinery or cars as he is at risk for injure himself or others Clinical Information Provided by: EMS Medical Records reviewed [facility] (I reviewed admission 03/15/2024 through 03/17/2024 ) Meds/Rx considered, not ordered None Labs/Rad/Tests considered, not ordered Describe: As noted above Chronic Illness/Social Conditions which may negatively complicate care or outcome(s)-explain: ETOH/drugs/substance abuse EKG EKG not done Labs Labs: none Imaging Imaging interpretation: none or see narrative above Medication Administration(s) none
--- NOTE | 2024-06-28 13:45 | PC.NURSE ---
I WAS CALLED OUT TO THE AMBULANCE BAY. PT IN THE BACK OF THE AMBULANCE. WANTING TO LEAVE. STATES HE DOESN'T WANT TO BE SEEN. THAT THIS IS A WAIST OF TIME. I INFORMED PT THAT HE HAD A SEIZURE AND DOESN'T HE WANT TO KNOW WHATS GOING ON WITH HIM. PT STATES IM fINE AND BEGAN WALKING TO THE FRONT OF ED. PT CALLED HIS MOTHER TO PICK HIM UP. DR IVORY WENT AND SPOKE WITH PT. PT SPOKE WITH MD MOMENTARILY THEN HE WALKED OFF. STATES HE DOESN'T WANT TO BE WORKED UP, HE DOESN'T HAVE TIME FOR THAT RIGHT NOW.
== END 2024-06-28 14:00 | disposition left against medical advice (07) ==
LOC: SERX 14:33
PROVIDERS: Emergency Provider Emergency Medicine
DX: R56.9 Unspecified convulsions (principal); Z53.29 Procedure and treatment not carried out because of patient's decision for other reasons
CPT/HCPCS: 99281

== ENCOUNTER 2024-11-15 20:25 | Emergency (ER) | payer SELFPAY ==
[2024-11-15 20:28] VITALS: PULSE 98; RESP 18; O2SAT 99; BMI 23.6
[2024-11-15 20:31] VITALS: BP 130/59; PULSE 74; RESP 14; TEMP 37; O2SAT 100
--- NOTE | 2024-11-15 20:44 | EDNOTE_ITS ---
ED Seizures RME/HPI General Chief Complaint: Seizure Stated Complaint: SEIZURES Time Seen by Provider: 11/15/24 20:36 Arrival date/time: 11/15/24 20:25 RME / HPI RME / HPI Narrative: DR. 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 Patient was found outside by family. Patient admits to consuming alcohol almost every day, including today. Patient also has a history of medication non- compliance. Per EMS, BS was 176 mg/dL, initially GCS 11, then 14, and finally 15. Patient has a history of being combative s/p seizure per PFD, so patient was placed on 4-point restraints. Patient was only observed to be mildly combative. Denies any allergies to medication. No tobacco use, but admits to marijuana use. No other concerns or complaints expressed at this time. Related Data Previous Rx's ?Medication ?Instructions ?Recorded levetiracetam 1,000 mg tablet 1,000 mg PO BID #60 tabs 11/15/24 ([facility]) Allergies Allergy/AdvReac Type Severity Reaction Status Date / Time No Known Allergies Allergy Unverified 03/16/24 08:14 Review of Systems Review of Systems Systems Reviewed: All systems reviewed, normal except as documented Past Medical History Past Medical History NEUROLOGIC: Positive Seizures Family History FAMILY HISTORY: Positive Family Cardiac Disorders (pt's grandma hx of PR) and Family Cancer Social History ALCOHOL: Current ALCOHOL FREQUENCY: A Few Times a Week ALCOHOL LAST INTAKE: Just Prior to Arrival LIVES WITH: Family ED Exam Narrative Physical exam: Generally patient is alert mildly combative but oriented, head shows the patient have a very superficial 1 cm laceration to the mid upper forehead at the hairline. No cephalohematoma., Eyes pupils equal round reactive to light, neck no midline tenderness and nontender to head compression, heart regular rate and rhythm, lungs clear to auscultation equal bilaterally, abdomen soft bowel sounds present nondistended nontender, neurologic exam shows the patient to have no focal motor deficits. Patient is slightly confused with [place] Coma Scale of 14. Course Quality Measures none Orders Category Date Time Status CT head/brain wo con Stat Exams 11/15/24 21:27 Taken CBC Stat Lab 11/15/24 20:35 Completed CMP [Comprehensive Metabolic Panel] Stat Lab 11/15/24 20:35 Completed Acetaminophen Tab [Tylenol Tab] Med 11/15/24 20:55 Discontinued 650 mg PO X1 ONE Ondansetron Inj [Zofran Inj] Med 11/15/24 21:26 Discontinued 4 mg .ROUTE .STK-MED ONE Ondansetron Inj [Zofran Inj] Med 11/15/24 21:26 Discontinued 4 mg IVP X1 ONE levETIRAcetam INJ [Keppra Inj] Med 11/15/24 20:37 Discontinued 1,000 mg IVP X1 ONE Vital Signs Vital signs: Vital Signs Temperature 98.6 F 11/15/24 20:31 Pulse Rate 74 11/15/24 20:31 Respiratory Rate 14 11/15/24 20:31 Blood Pressure 130/59 L 11/15/24 20:31 Pulse Oximetry (%) 100 11/15/24 20:31 Oxygen Delivery Method Room Air 11/15/24 20:31 Seizure MDM Narrative MDM Narrative:: Scribe Attestation: I, Chasity Patterson, am scribing for and in the presence of Dr. Kaufman. Provider Notation: Although this document has been carefully reviewed, there may still be some phonetic and other typographical errors. These errors are purely grammatical due to imperfections in the software program and should not be construed in any way to compromise the substance of the patient's medical care during this visit. Patient drinks alcohol on a very regular basis. I interpreted all labs. Head CT was negative. Patient received Keppra 1000 mg IV and there is no further seizure. Patient states that he has a seizure disorder but does not know the name of the medication he should be taking. He is obviously noncompliant. Patient will be discharged on Keppra to be taken as prescribed. The patient's superficial laceration to the hairline to the mid forehead does not require repair. Patient was observed here in the emergency room for prolonged length of stay without seizure. He is avoid alcohol. Take Keppra as prescribed. Patient data External records reviewed:: [facility] previous records (Reviewed prior ED records from 06/28/24. Patient was seen for Generalized tonic-clonic seizure.) and EMS form Clinical information provided by:: patient and EMS Social determinants that could affect healthcare access:: alcohol use Patient has the following chronic illnesses:: Seizures How is presenting disease/condition affected by chronic disease/condition?: exacerbated by Evaluation data The following diagnostics were reviewed and interpreted by me:: lab results and radiology exam(s) Lab and/or radiology exams considered but not ordered:: None Interpretation Summary: RADIOLOGY Head/Brain CT: Pending official radiology report. Medications / Prescriptions Medications or Prescriptions considered but not ordered:: None Medication administrations:: Medication Administration History Discontinued Medications Acetaminophen (Acetaminophen 325 Mg Tablet) 650 mg PO X1 ONE Stop: 11/15/24 20:56 Last Admin: 11/15/24 21:22 Dose: 650 mg Documented By: JACOBO Levetiracetam (Levetiracetam Inj 100 Mg/Ml Vial 5ml) 1,000 mg IVP X1 ONE Stop: 11/15/24 20:38 Last Admin: 11/15/24 20:50 Dose: 1,000 mg Documented By: JACOBO Ondansetron HCl (Ondansetron Inj 2 Mg/Ml Inj 2 Ml) 4 mg IVP X1 ONE; Protocol Stop: 11/15/24 21:27 Last Admin: 11/15/24 21:29 Dose: 4 mg Documented By: JACOBO Ondansetron HCl (Ondansetron Inj 2 Mg/Ml Inj 2 Ml) Confirm Administered Dose 4 mg .ROUTE .STK-MED ONE Stop: 11/15/24 21:27 See above if any Consultations Consultation(s) initiated? (list below): No Diagnosis Seizure Differential Diagnosis: intractable seizure disorder, focal seizure, generalized seizure, epileptic seizure and status epilepticus Most likely diagnosis given after review of the tests above:: none Admission Indicated Admission indicated?: not indicated Explain why admission is indicated or not indicated:: Patient does not meet admission criteria Admission Request Was there a request for admission?: No Disposition Plan Disposition Plan: Discharge Discharge Attestation Discharge Attestation: The patient and all family members were given an opportunity to ask questions and understood the discharge instructions. Discharge instructions specifically effects, indications for sooner follow up or return to the emergency department, and the expected course of current diagnosis. Patient condition: Stable Discharge Plan Plan Patient Disposition: HOME (Self Care) Prescriptions/Referrals Prescriptions/Med Rec: New levetiracetam [Keppra] 1,000 mg tablet 1,000 mg PO BID Qty: 60 0RF Referrals: No Primary/Family,Physician [Primary Care Provider] - In 1 week Problem List Clinical Impression: Seizure, Alcohol abuse Patient/Caregiver Discharge Instructions Education Materials: ED Seizure, Recurrent (Adult), ED Alcohol Abuse Additional Instructions: Decrease your alcohol consumption. Keppra as prescribed. Print Language: [place] Stand Alone Forms: [employer] Award Info., Patient Portal Info Letter
[2024-11-15 20:46] LABS: Basophils # (Auto) 0.1 Thou/mm3 (0.0-0.2); Basophils % (Auto) 1 % (0-2.5); Eosinophils # (Auto) 0.2 Thou/mm3 (0.0-0.5); Eosinophils % (Auto) 2 % (0-10); Hematocrit 41.5 % (41.0-53.0); Hemoglobin 13.8 g/dL (13.5-16.0); Immature Granulocytes Auto 0.05 Thou/mm3 (0.00-0.00); Lymphocytes # (Auto) 1.7 Thou/mm3 (1.0-4.8); Lymphocytes % (Auto) 15 % (10-50); Mean Corpuscular HGB Conc 33.3 g/dl (31.0-37.0); Mean Corpuscular Hemoglobin 28.8 pg (25.0-35.0); Mean Corpuscular Volume 87 fL (80-100); Monocytes # (Auto) 0.9 Thou/mm3 (0.0-0.8); Monocytes % (Auto) 8 % (0-12); Neutrophils # (Auto) 8.4 Thou/mm3 (1.8-7.7); Neutrophils % (Auto) 75 % (37-80); Nucleated Red Blood Cell # 0.00 Thou/mm3 (0.00-0.00); Nucleated Red Blood Cell % 0 /100 WBC (0); Platelet Count 291 Thou/mm3 (140-440); RDW Standard Deviation 43.7 fL (35.1-43.9); Red Blood Count 4.79 Miln/mm3 (4.50-5.90); White Blood Count 11.3 Thou/mm3 (3.8-10.6)
[2024-11-15] MEDS: levETIRAcetam INJ 100 MG/ML VIAL 5ML 1000 MG IVP (20:50)
[2024-11-15 21:05] LABS: Alanine Aminotransferase 15 U/L (10-49); Albumin, Serum 4.9 gm/dL (3.5-5.0); Albumin/Globulin Ratio 1.9 (1.2-2.2); Alkaline Phosphatase 85 U/L (46-116); Anion Gap 14 (7-16); Aspartate Amino Transferase 27 U/L (0-34); BUN/Creatinine Ratio 5 Ratio (12-20); Bilirubin,Total 0.8 mg/dL (0.3-1.2); Blood Urea Nitrogen < 5 mg/dL (9-23); Calcium 9.7 mg/dL (8.3-10.6); Calcium (Corrected) 9.7 mg/dL (8.5-10.1); Carbon Dioxide 21.6 mMol/L (20.0-31.0); Chloride 102 mMol/L (98-107); Creatinine (Component) 1.1 mg/dL (0.6-1.3); Estimated Creatinine Clearance 101.0 mL/min (>60); Globulin 2.6 gm/dL (2.3-3.5); Glucose 188 mg/dL (74-106); Osmolality,Calculated 277 (275-295); Potassium 3.8 mMol/L (3.4-5.1); Sodium 138 mMol/L (136-145); Total Protein 7.5 gm/dL (5.7-8.2); eGFR > 60 See Note
[2024-11-15] MEDS: ACETAMINOPHEN 325 MG TABLET 650 MG PO (21:22)
--- NOTE | 2024-11-15 21:27 | XR_ITS ---
Examination: CT brain head without contrast. 2-D sagittal coronal reconstructions Date and time of exam:November 15, 2024, 2149 hrs., Comparison March 15, 2024 Indications: Altered mental status today CTDI: vol (mGy):48.4 DLP: (mGycm):956 Technique: Multiple CT axial sections of the brain have been obtained, 5 mm slice thickness. Contrast has not been administered. 2-D sagittal, coronal reconstructions have been obtained Low dose protocols were performed. One or more of the following dose reduction techniques were used; automated exposure control, adjustment of the mA and/or KV according to patient size, use of iterative reconstruction technique. Findings: No significant ventricular enlargement. Intra-axial or extra-axial hemorrhage density is not seen. No mass effect or midline shift Basal cisterns are not remarkable. Fourth ventricle is midline. Cranial vault intact. Impression: Negative for acute hemorrhage, mass effect or midline shift Advise clinical correlation follow-up accordingly
[2024-11-15 21:29] VITALS: BP 108/61; PULSE 82; RESP 16; TEMP 37.2; O2SAT 100
[2024-11-15] MEDS: ONDANSETRON INJ 2 MG/ML INJ 2 ML 4 MG IVP (21:29)
[2024-11-15 23:40] VITALS: BP 110/62; PULSE 75; RESP 18; TEMP 36.6; O2SAT 96
== END 2024-11-15 23:42 | disposition home or self-care (01) ==
PROVIDERS: Emergency Provider Emergency Medicine
DX: R56.9 Unspecified convulsions (principal); F10.10 Alcohol abuse, uncomplicated
CPT/HCPCS: 36415; 70450; 80053; 85025; 99283; J1953; J2405; A9270